=== PATIENT | male | born 1945 | race Two or more races ===

== ENCOUNTER 2017-06-04 08:48 | Outpatient (CLI) | payer OTHER ==
[~2017-06-04] VITALS: Ht 152.4 cm; Wt 78.0 kg
[~2017-06-04 08:48] MED LIST: ENALAPRIL 10 MG; METFORMIN HYDRO25 GM MC; ZIAC 10/6.25 MG1 TAB PO
== END 2017-06-04 09:10 | disposition home or self-care (01) ==
LOC: OFIC 805 08:48
DX: H90.41 Sensorineural hearing loss, unilateral, right ear, with unrestricted hearing on the contralateral side (principal); H61.23 Impacted cerumen, bilateral; J31.0 Chronic rhinitis